=== PATIENT | male | born 1980 | race Caucasian/White ===

== ENCOUNTER 2016-08-23 21:20 | Emergency (ER) | payer SELFPAY ==
[2016-08-23] MEDS ORDERED: AMOXICILLIN/POTASSIUM CLAV 875MG/125MG TABLET PO ONE ×2 (21:45→22:20)
--- NOTE | 2016-08-23 22:08 | Emergency Department Record ---
History of Present Illness - General Chief Complaint: Animal Bite Stated Complaint: DOG BITE Time Seen by Provider: 08/23/16 21:45 Source: Patient Mode of Arrival: Ambulatory Limitations: No limitations - History of Present Illness Initial Comments: 36 yo male presents with a right forearm bite. He was two dogs from fighting. A pit bull bit his right forearm. No weakness, no numbness, no loss of ROM. Both dogs were pets. Both dogs can be monitored. A report was filed and law enforcement interviewed the patient. MD Complaint: Animal bite Onset/Timin -: Hour(s) Location - General: Other (Extremity) Right: Forearm Animal: Dog Description: Household pet, Immunizations unknown Mechanism: Bite Severity scale (1-10): 2 Context: Animals fighting Treatments Prior to Arrival: Irrigation, Pressure, Other - Related Data Previous Rx's Medication Instructions Recorded Amoxicillin/Potassium Clav 1 tab PO BID #20 tab 08/23/16 [Augmentin 875-125 Tablet] Allergies Allergy/AdvReac Type Severity Reaction Status Date / Time No Known Drug Allergies Allergy Verified 08/23/16 21:36 Travel Screening - Travel/Exposure Within Last 30 Days Have you traveled within the last 30 days?: No Review of Systems Constitutional: Denies: Chills, Fever, Weakness Eyes: Denies: Eye discharge ENT: Denies: Congestion, Throat pain Respiratory: Denies: Cough Cardiovascular: Denies: Chest pain, Palpitations, Syncope Endocrine: Denies: Fatigue Gastrointestinal: Denies: Abdominal pain, Diarrhea, Nausea, Vomiting Genitourinary: Denies: Dysuria, Frequency, Hematuria, Urgency Musculoskeletal: Reports: Myalgia. Denies: Arthralgia, Back pain, Joint swelling, Neck pain Skin: Reports: Other (bite). Denies: Bruising, Change in color Neurological: Denies: Confusion, Headache Psychiatric: Denies: Anxiety Hematological/Lymphatic: Denies: Blood Clots, Easy bleeding, Easy bruising, Swollen glands Past Medical History - SOCIAL HISTORY Smoking Status: Never smoker Alcohol Use: None Drug Use: None - RESPIRATORY Hx Respiratory Disorders: No - CARDIOVASCULAR Hx Cardio Disorders: No - NEURO Hx Neuro Disorders: No - GI Hx GI Disorders: No - Hx Genitourinary Disorders: No - ENDOCRINE Hx Endocrine Disorders: No - MUSCULOSKELETAL Hx Musculoskeletal Disorders: No - PSYCH Hx Psych Problems: No - HEMATOLOGY/ONCOLOGY Hx Hematology/Oncology Disorders: No Family Medical History Any Significant Family History?: No Physical Exam - General General Appearance: Alert, Oriented x3, Cooperative, No acute distress Limitations: No limitations - Head Head exam: Atraumatic, Normal inspection - Eye Eye exam: Normal appearance, PERRL. negative: Conjunctival injection, Periorbital swelling - ENT ENT exam: Normal exam Ear exam: Normal external inspection Nasal Exam: Normal inspection Mouth exam: Normal external inspection - Neck Neck exam: Normal inspection, Full ROM. negative: Tenderness - Respiratory Respiratory exam: Normal lung sounds bilaterally. negative: Respiratory distress - Cardiovascular Cardiovascular Exam: Regular rate, Normal rhythm, Normal heart sounds Peripheral Pulses: 2+: Radial (R) - Rectal Rectal exam: Deferred - exam: Deferred - Extremities Extremities exam: negative: Normal inspection Image of Full Body: 1 - 2 dorsal puncture bite areas, no FB visible; 2 - one puncture bite site, soft forearm, no swelling, full ROM spontaneously and passively without pain - Back Back exam: Reports: Normal inspection, Full ROM. Denies: Muscle spasm, Rash noted, Tenderness - Neurological Neurological exam: Alert, Oriented X3 - Psychiatric Psychiatric exam: Normal affect, Normal mood - Skin Skin exam: Dry, Intact, Normal color, Warm Course Vital Signs 08/23/16 21:37 Temperature 98.0 F Pulse Rate 107 H Respiratory 18 Rate Blood Pressure 140/91 Pulse Ox 96 - Reevaluation(s) Reevaluation #1: The XR was reviewed No acute bony injury or FB on my prelim Augmentin given Tetanus is less than 5 years The punctures were cleaned with Shur Clens and then copiously irrigated with NS We discussed signs and symptoms of inflection and reasons to return. 08/23/16 22:17 Reevaluation #2: The dog is a pet and will be monitored. No indication at this time for rabies vaccination 08/24/16 06:24 Disposition Disposition: Discharge Clinical Impression: Dog bite Qualifiers: Encounter type: initial encounter Qualified Code(s): W54.0XXA - Bitten by dog, initial encounter Disposition: Home, Self-Care Condition: (1) Good Instructions: Animal Bite (ED) Additional Instructions: Immediately return to the ED if you have fever, pus, redness, swelling or any new concerns Call your doctor for close monitor as your bite heals Take Augmentin 2 times daily Prescriptions: Amoxicillin/Potassium Clav [Augmentin 875-125 Tablet] 1 tab PO BID #20 tab Forms: Patient Portal Access Time of Disposition: 22:18
== END 2016-08-23 22:28 | disposition home or self-care (01) ==
LOC: ER 21:20
DX: S51.831A Puncture wound without foreign body of right forearm, initial encounter (principal); W54.0XXA Bitten by dog, initial encounter; Y92.009 Unspecified place in unspecified non-institutional (private) residence as the place of occurrence of the external cause
CPT/HCPCS: 99283